=== PATIENT | female | born 1990 | race Native Hawaiian/Other Pacific Islander ===

== ENCOUNTER 2016-12-05 19:57 | Emergency (ER) | payer OTHER ==
--- NOTE | 2016-12-06 | ED NURSING NOTES ---
Clinical Report - Nurses Merged With [facility] [address] [place] [address] 12/05/2016 19:59 Patient: KELLY KAUFMAN TRIAGE Triage time 21:07. Acuity: LEVEL 3. Chief Complaint: HEADACHE, NAUSEA and ABDOMINAL PAIN. 21:21. Alert. SEPSIS SCREEN: Sepsis Screen. Negative (no infection suspected/documented). MARÍA COMA SCORE: [place] Coma Scale: 15- eyes open spontaneously (4); best verbal response- oriented x 4 (5); best motor response- obeys commands (6). --21:21 Claus Thomas R.N. 21:17 12/05/16. BP: 127/72. HR: 98. RR: 17. O2 saturation: 100% on room air. Temp: 98.2 F (oral). Pain level now: 07/28. --21:21 Claus Thomas R.N. Weight: 44.9 kg stated. Height/Length: 61 inches Per Patient. BMI: 18.7. --00:11 Claus Thomas R.N. Medications None. --21:18 Claus Thomas R.N. Medication/allergy information source: the patient. --21:21 Claus Thomas R.N. Allergies Compazine. --21:18 Claus Thomas R.N. History Arrived by private vehicle. Historian: patient. Unaccompanied. Primary physician ([facility]). Onset. (3 days ago). Treatment PRESENTATION DESIGNER: None. PAST MEDICAL HX: Immunizations: up-to-date. Last normal menstrual period now. SOCIAL HX: Never smoker. Occasional alcohol use. History of drug use: marijuana. (daily). No infectious disease exposure. ABUSE ASSESSMENT: No report of abuse. FALL RISK ASSESSMENT: Fall risk assessment completed. No fall risk identified. NUTRITIONAL RISK ASSESSMENT: The nutritional risk assessment revealed no deficiencies. FUNCTIONAL ASSESSMENT: Functional assessment: no impairments noted. LEARNING NEEDS ASSESSMENT: The learning needs assessment revealed no barriers. SKIN INTEGRITY ASSESSMENT: Skin integrity risk assessment completed. No skin integrity risk identified. --21:21 Claus Thomas R.N. PROBLEMS: PTSD. Depression. --21:19 Claus Thomas R.N. ADDITIONAL SURGERIES: Hand surgery. --21:19 Claus Thomas R.N. Interventions ID band on patient. To treatment room. --21:21 Claus Thomas R.N. PHYSICAL ASSESSMENT 21:13. To room via wheelchair. Patient gowned. GENERAL / NEURO / PSYCH: Alert. Oriented X 4. HEENT: No facial asymmetry noted. Mucous membranes are pink. RESPIRATORY: Respirations not labored. GI / : Emesis noted. Has vomited once. SKIN: Skin is warm and dry. Normal skin turgor. --21:13 Claus Thomas R.N. NURSING PROGRESS NOTES 21:08 Patient to restroom to provide urine sample. --21:08 Claus Thomas R.N. 21:09. Patient ID band checked for patient name and birthdate: patient confirmed. Clean catch urine collected with return of yellow-colored clear urine; sample sent to lab for urinalysis, drug screen and HCG. Specimen labeled in the presence of the patient. --21:12 Claus Thomas R.N. 21:12 Patient vomiting - emesis bag provided. --21:12 Claus Thomas R.N. 21:31 12/05/2016 Site #1 started via IV in the right wrist with an 22g angiocath, with aseptic technique and good blood return; one attempt. Saline lock flushed with 10 mL saline (Unable to draw). --21:42 Claus Thomas R.N. 21:48 12/05/2016 Zofran (Ondansetron HCl) IVP 4 mg given over 2 minute(s) via site #1. Allergies verified and confirmed 5 rights. IV patency established. IV site checked: no pain, redness, or swelling. IV flushed thoroughly pre- and post-medication administration (patient reports having 4mg PO just before arrival form [facility]). --21:50 Claus Thomas R.N. 21:49 12/05/2016 Started bag #1 1000 mL IV Fluids IV NS (Saline); at 1000 mL/hr over 1 hour(s) via site #1 via IV pump. Allergies verified and confirmed 5 rights. IV patency established. IV site checked: no pain, redness, or swelling. IV flushed thoroughly pre- and post-medication administration. --21:51 Claus Thomas R.N. 21:52 Lab with pt for blood draw. --21:52 Claus Thomas R.N. <<STRICKEN ENTRY-- 22:54 12/05/2016 Started bag #1 1000 mL IV Fluids IV NS (Saline); at 999 mL/hr over 1 hour(s) via site #1 via IV pump. IV patency established. IV site checked: no pain, redness, or swelling. IV flushed thoroughly pre- and post-medication administration. --22:55 Claus Thomas R.N. --END STRIKE>> Correction. --22:55 Claus Thomas R.N. 22:54 12/05/2016 Started bag #2 1000 IV Fluids IV NS (Saline); at 999 mL/hr over 1 hour(s) via site #1 via IV pump. IV patency established. IV site checked: no pain, redness, or swelling. IV flushed thoroughly pre- and post-medication administration. --22:55 Claus Thomas R.N. 22:55 12/05/2016 IV Fluids IV NS Discontinued: bag #1 infused. Total amount infused: 1000 mL. IV patency established. IV site checked: no pain, redness, or swelling. IV flushed thoroughly. --22:55 Claus Thomas R.N. 23:00 12/05/2016 Toradol IVP 30 mg given over 2 minute(s) via site #1. Allergies verified and confirmed 5 rights. IV patency established. IV site checked: no pain, redness, or swelling. IV flushed thoroughly pre- and post-medication administration. --23:00 Claus Thomas R.N. 23:38. Patient ID band checked for patient name and birthdate: patient confirmed. Throat swab obtained for rapid strep; labeled in the presence of the patient and sent to lab. --23:38 Claus Thomas R.N. 23:36 12/05/2016 Benadryl (DiphenhydrAMINE HCl) IVP 25 mg given over 1 minute(s) via site #1. Allergies verified, confirmed 5 rights and sedative warning given to the patient. IV patency established. IV site checked: no pain, redness, or swelling. IV flushed thoroughly pre- and post-medication administration. --23:39 Claus Thomas R.N. 23:39 12/05/16. BP: 110/62. HR: 88. RR: 16. O2 saturation: 98% on room air. --23:39 Claus Thomas R.N. 23:39. The patient is calm and resting quietly. RESPIRATORY: No respiratory distress. SKIN: Skin is warm and dry. Skin color within normal limits. --23:39 Claus Thomas R.N. 00:00 12/06/2016 IV Fluids IV NS Discontinued: bag #2 infused upon discharge. Total amount infused: 1000 mL. IV patency established. IV site checked: no pain, redness, or swelling. IV flushed thoroughly. --00:00 Claus Thomas R.N. 00:05. The patient is calm and resting quietly. RESPIRATORY: No respiratory distress. SKIN: Skin is warm and dry. Skin color within normal limits. --03:23 Claus Thomas R.N. DISPOSITION / DISCHARGE Departure time: 00:09. Condition at departure: stable. No learning barriers present. Discharge instructions provided and reviewed with the patient. Reviewed medication(s) side effects, precautions, dosing and course information. Prescription(s) given to the patient. Patient verbalized understanding. Written instructions provided in Divehi. The patient was discharged home and accompanied by civil celebrant. She left the Emergency Department ambulatory and via private vehicle. Jewel Supervisor driving. FALL RISK ASSESSMENT: Fall risk assessment completed. No fall risk identified. --00:09 Claus Thomas R.N. 00:01 12/06/16. BP: 99/49. HR: 86. RR: 15. O2 saturation: 98% on room air. Temp: 98.3 F (oral). Pain level now: 11/28. --00:09 Claus Thomas R.N. 00:05 12/06/2016 Site #1 removed upon discharge. Catheter intact. Bandage applied. --00:10 Claus Thomas R.N. Locked/Released at 12/06/2016 3:24 by Claus Thomas R.N.
--- NOTE | 2016-12-06 | ED NURSING NOTES ---
Clinical Report - Nurses [facility] [address] [place] [address] 12/05/2016 19:59 Patient: KELLY KAUFMAN TRIAGE Triage time 21:07. Acuity: LEVEL 3. Chief Complaint: HEADACHE, NAUSEA and ABDOMINAL PAIN. 21:21. Alert. SEPSIS SCREEN: Sepsis Screen. Negative (no infection suspected/documented). MARÍA COMA SCORE: [place] Coma Scale: 15- eyes open spontaneously (4); best verbal response- oriented x 4 (5); best motor response- obeys commands (6). --21:21 Claus Thomas R.N. 21:17 12/05/16. BP: 127/72. HR: 98. RR: 17. O2 saturation: 100% on room air. Temp: 98.2 F (oral). Pain level now: 07/28. --21:21 Claus Thomas R.N. Weight: 44.9 kg stated. Height/Length: 61 inches Per Patient. BMI: 18.7. --00:11 Claus Thomas R.N. Medications None. --21:18 Claus Thomas R.N. Medication/allergy information source: the patient. --21:21 Claus Thomas R.N. Allergies Compazine. --21:18 Claus Thomas R.N. History Arrived by private vehicle. Historian: patient. Unaccompanied. Primary physician ([facility]). Onset. (3 days ago). Treatment SHREDDER/GRANULATOR OPERATOR: None. PAST MEDICAL HX: Immunizations: up-to-date. Last normal menstrual period now. SOCIAL HX: Never smoker. Occasional alcohol use. History of drug use: marijuana. (daily). No infectious disease exposure. ABUSE ASSESSMENT: No report of abuse. FALL RISK ASSESSMENT: Fall risk assessment completed. No fall risk identified. NUTRITIONAL RISK ASSESSMENT: The nutritional risk assessment revealed no deficiencies. FUNCTIONAL ASSESSMENT: Functional assessment: no impairments noted. LEARNING NEEDS ASSESSMENT: The learning needs assessment revealed no barriers. SKIN INTEGRITY ASSESSMENT: Skin integrity risk assessment completed. No skin integrity risk identified. --21:21 Claus Thomas R.N. PROBLEMS: PTSD. Depression. --21:19 Claus Thomas R.N. ADDITIONAL SURGERIES: Hand surgery. --21:19 Claus Thomas R.N. Interventions ID band on patient. To treatment room. --21:21 Claus Thomas R.N. PHYSICAL ASSESSMENT 21:13. To room via wheelchair. Patient gowned. GENERAL / NEURO / PSYCH: Alert. Oriented X 4. HEENT: No facial asymmetry noted. Mucous membranes are pink. RESPIRATORY: Respirations not labored. GI / : Emesis noted. Has vomited once. SKIN: Skin is warm and dry. Normal skin turgor. --21:13 Claus Thomas R.N. NURSING PROGRESS NOTES 21:08 Patient to restroom to provide urine sample. --21:08 Claus Thomas R.N. 21:09. Patient ID band checked for patient name and birthdate: patient confirmed. Clean catch urine collected with return of yellow-colored clear urine; sample sent to lab for urinalysis, drug screen and HCG. Specimen labeled in the presence of the patient. --21:12 Claus Thomas R.N. 21:12 Patient vomiting - emesis bag provided. --21:12 Claus Thomas R.N. 21:31 12/05/2016 Site #1 started via IV in the right wrist with an 22g angiocath, with aseptic technique and good blood return; one attempt. Saline lock flushed with 10 mL saline (Unable to draw). --21:42 Claus Thomas R.N. 21:48 12/05/2016 Zofran (Ondansetron HCl) IVP 4 mg given over 2 minute(s) via site #1. Allergies verified and confirmed 5 rights. IV patency established. IV site checked: no pain, redness, or swelling. IV flushed thoroughly pre- and post-medication administration (patient reports having 4mg PO just before arrival form [facility]). --21:50 Claus Thomas R.N. 21:49 12/05/2016 Started bag #1 1000 mL IV Fluids IV NS (Saline); at 1000 mL/hr over 1 hour(s) via site #1 via IV pump. Allergies verified and confirmed 5 rights. IV patency established. IV site checked: no pain, redness, or swelling. IV flushed thoroughly pre- and post-medication administration. --21:51 Claus Thomas R.N. 21:52 Lab with pt for blood draw. --21:52 Claus Thomas R.N. <<STRICKEN ENTRY-- 22:54 12/05/2016 Started bag #1 1000 mL IV Fluids IV NS (Saline); at 999 mL/hr over 1 hour(s) via site #1 via IV pump. IV patency established. IV site checked: no pain, redness, or swelling. IV flushed thoroughly pre- and post-medication administration. --22:55 Claus Thomas R.N. --END STRIKE>> Correction. --22:55 Claus Thomas R.N. 22:54 12/05/2016 Started bag #2 1000 IV Fluids IV NS (Saline); at 999 mL/hr over 1 hour(s) via site #1 via IV pump. IV patency established. IV site checked: no pain, redness, or swelling. IV flushed thoroughly pre- and post-medication administration. --22:55 Claus Thomas R.N. 22:55 12/05/2016 IV Fluids IV NS Discontinued: bag #1 infused. Total amount infused: 1000 mL. IV patency established. IV site checked: no pain, redness, or swelling. IV flushed thoroughly. --22:55 Claus Thomas R.N. 23:00 12/05/2016 Toradol IVP 30 mg given over 2 minute(s) via site #1. Allergies verified and confirmed 5 rights. IV patency established. IV site checked: no pain, redness, or swelling. IV flushed thoroughly pre- and post-medication administration. --23:00 Claus Thomas R.N. 23:38. Patient ID band checked for patient name and birthdate: patient confirmed. Throat swab obtained for rapid strep; labeled in the presence of the patient and sent to lab. --23:38 Claus Thomas R.N. 23:36 12/05/2016 Benadryl (DiphenhydrAMINE HCl) IVP 25 mg given over 1 minute(s) via site #1. Allergies verified, confirmed 5 rights and sedative warning given to the patient. IV patency established. IV site checked: no pain, redness, or swelling. IV flushed thoroughly pre- and post-medication administration. --23:39 Claus Thomas R.N. 23:39 12/05/16. BP: 110/62. HR: 88. RR: 16. O2 saturation: 98% on room air. --23:39 Claus Thomas R.N. 23:39. The patient is calm and resting quietly. RESPIRATORY: No respiratory distress. SKIN: Skin is warm and dry. Skin color within normal limits. --23:39 Claus Thomas R.N. 00:00 12/06/2016 IV Fluids IV NS Discontinued: bag #2 infused upon discharge. Total amount infused: 1000 mL. IV patency established. IV site checked: no pain, redness, or swelling. IV flushed thoroughly. --00:00 Claus Thomas R.N. 00:05. The patient is calm and resting quietly. RESPIRATORY: No respiratory distress. SKIN: Skin is warm and dry. Skin color within normal limits. --03:23 Claus Thomas R.N. DISPOSITION / DISCHARGE Departure time: 00:09. Condition at departure: stable. No learning barriers present. Discharge instructions provided and reviewed with the patient. Reviewed medication(s) side effects, precautions, dosing and course information. Prescription(s) given to the patient. Patient verbalized understanding. Written instructions provided in Korean. The patient was discharged home and accompanied by tree faller. She left the Emergency Department ambulatory and via private vehicle. Rag Inspector driving. FALL RISK ASSESSMENT: Fall risk assessment completed. No fall risk identified. --00:09 Claus Thomas R.N. 00:01 12/06/16. BP: 99/49. HR: 86. RR: 15. O2 saturation: 98% on room air. Temp: 98.3 F (oral). Pain level now: 11/28. --00:09 Claus Thomas R.N. 00:05 12/06/2016 Site #1 removed upon discharge. Catheter intact. Bandage applied. --00:10 Claus Thomas R.N. Locked/Released at 12/06/2016 3:24 by Claus Thomas R.N.
--- NOTE | 2016-12-06 | ED ORDER SUMMARY ---
..... Patient: KELLY KAUFMAN OrderSheet [facility] VisitID: [id number] [address] [place] [address] 26y, F Registration Date/Time: 12/05/2016 ORDER SHEET Weight: 44.9 kg (stated) Allergies: Compazine GENERAL ORDERS: UA-Culture if indicated Urgent (21:12/05/2016 JQuivey R.N. per protocol) (Ack 21:35 CHagerty ER Produce Assistant) (21:40 JQuivey R.N.) Urine Urgent (21:12/05/2016 JQuivey R.N. per protocol) (Ack 21:35 CHagerty ER Produce Assistant) (21:40 JQuivey R.N.) CBC w Diff Urgent (:12/05/2016 JCoates) (Ack 21:35 CHagerty ER Produce Assistant) (22:52 JQuivey R.N.) CMP Urgent (21:12/05/2016 JCoates) (Ack 21:35 CHagerty ER Produce Assistant) (22:52 JQuivey R.N.) Urine Drug Screen Urgent (:12/05/2016 JCoates) (Ack 21:35 CHagerty ER Produce Assistant) (21:40 JQuivey R.N.) Culture, Strep Screen Urgent (23:12/05/2016 JCoates) (Ack 23:30 CHatlaceyekimana) (23:38 JQuivey R.N.) MEDICATION ORDERS: IV FLUIDS: IV NS : initial bolus 1000 mL (1000 mL/hr), then 1000 mL/hr for X1 (NOW) (21:12/05/2016 JCoates) (Ack 21:40 JQuivey R.N.) (21:51 JQuivey R.N.) Zofran IV 8 mg (NOW) (21:12/05/2016 JCoates) (Ack 21:40 JQuivey R.N.) (Cancelled: Other21:47 JQuivey R.N.) IV Saline Lock (:12/05/2016 JCoates) (Ack 21:40 JQuivey R.N.) (21:42 JQuivey R.N.) Zofran IV 4 mg (NOW) (21:48 12/05/2016 JQuivey R.N. per protocol) (21:50 JQuivey R.N.) IV NS : initial bolus 1000 mL (1000 mL/hr), then 1000 mL/hr for X1 (NOW) (22:49 12/05/2016 JCoates) (Ack 22:52 JQuivey R.N.) (22:55 JQuivey R.N.) Toradol IV 30 mg (NOW) (22:56 12/05/2016 JCoates) (23:00 JQuivey R.N.) Benadryl IV 25 mg (NOW) (23:27 12/05/2016 JCoates) (Ack 23:34 JQuivey R.N.) (23:38 JQuivey R.N.) ORDER SHEET NOTES: [Electronically signed by Jerson Carmen (00:46 12/06/2016)] [Electronically signed by Claus Thomas R.N. (03:24 12/06/2016)] [Electronically locked/signed by Claus Thomas R.N. (03:24 12/06/2016)]
--- NOTE | 2016-12-06 | ED ORDER SUMMARY ---
..... Patient: KELLY KAUFMAN OrderSheet [facility] VisitID: [id number] [address] [place] [address] 26y, F Registration Date/Time: 12/05/2016 ORDER SHEET Weight: 44.9 kg (stated) Allergies: Compazine GENERAL ORDERS: UA-Culture if indicated Urgent (21:12/05/2016 JQuivey R.N. per protocol) (Ack 21:35 CHagerty ER Dust Box Tender) (21:40 JQuivey R.N.) Urine Urgent (21:12/05/2016 JQuivey R.N. per protocol) (Ack 21:35 CHagerty ER Dust Box Tender) (21:40 JQuivey R.N.) CBC w Diff Urgent (:12/05/2016 JCoates) (Ack 21:35 CHagerty ER Dust Box Tender) (22:52 JQuivey R.N.) CMP Urgent (21:12/05/2016 JCoates) (Ack 21:35 CHagerty ER Dust Box Tender) (22:52 JQuivey R.N.) Urine Drug Screen Urgent (:12/05/2016 JCoates) (Ack 21:35 CHagerty ER Dust Box Tender) (21:40 JQuivey R.N.) Culture, Strep Screen Urgent (23:12/05/2016 JCoates) (Ack 23:30 CHatlaceyekimana) (23:38 JQuivey R.N.) MEDICATION ORDERS: IV FLUIDS: IV NS : initial bolus 1000 mL (1000 mL/hr), then 1000 mL/hr for X1 (NOW) (21:12/05/2016 JCoates) (Ack 21:40 JQuivey R.N.) (21:51 JQuivey R.N.) Zofran IV 8 mg (NOW) (21:12/05/2016 JCoates) (Ack 21:40 JQuivey R.N.) (Cancelled: Other21:47 JQuivey R.N.) IV Saline Lock (:12/05/2016 JCoates) (Ack 21:40 JQuivey R.N.) (21:42 JQuivey R.N.) Zofran IV 4 mg (NOW) (21:48 12/05/2016 JQuivey R.N. per protocol) (21:50 JQuivey R.N.) IV NS : initial bolus 1000 mL (1000 mL/hr), then 1000 mL/hr for X1 (NOW) (22:49 12/05/2016 JCoates) (Ack 22:52 JQuivey R.N.) (22:55 JQuivey R.N.) Toradol IV 30 mg (NOW) (22:56 12/05/2016 JCoates) (23:00 JQuivey R.N.) Benadryl IV 25 mg (NOW) (23:27 12/05/2016 JCoates) (Ack 23:34 JQuivey R.N.) (23:38 JQuivey R.N.) ORDER SHEET NOTES: [Electronically signed by Jerson Carmen (00:46 12/06/2016)] [Electronically signed by Claus Thomas R.N. (03:24 12/06/2016)] [Electronically locked/signed by Claus Thomas R.N. (03:24 12/06/2016)]
--- NOTE | 2016-12-06 | ED CLINICAL REPORT ---
Clinical Report - Physicians/Mid Levels [facility] [address] [place] [address] 12/05/2016 19:59 Patient: KELLY KAUFMAN Time Seen: 21:14 Dec 05 2016. Arrived- By private vehicle. Historian- patient. HISTORY OF PRESENT ILLNESS Chief Complaint: VOMITING. This started 3 days ago and is still present. It was abrupt in onset. The patient has had nausea, vomiting and abdominal pain. No diarrhea, black stools, bloody stools or constipation. Has not recently been on antibiotics. The illness is described as moderate. Similar symptoms previously: None. Recent medical care: Not recently seen/assessed. REVIEW OF SYSTEMS No fever, difficulty with urination, cough or skin rash. Denies current . All systems otherwise negative, except as recorded above. PAST HISTORY See nurses notes. No history of heart disease or lung disease. SOCIAL HISTORY Never smoker. Alcohol use. History of drug use. PHYSICAL EXAM Appearance: The patient is mildly dehydrated, appears frail, unkempt and older than stated age and appears malnourished. Eyes: Pupils equal, round and reactive to light. Eyes normal inspection. ENT: Abnormal ear exam: Cauliflower ear to left ear. Left Ear: there is mild pain on movement of the auricle. No wax occlusion of or inflammation of the left external canal. Nose normal. Pharynx normal. Neck: Normal inspection. Neck supple. No meningeal signs, JVD or lymphadenopathy. CVS: Tachycardia. Heart sounds normal. Rhythm normal. Respiratory: No respiratory distress. Breath sounds normal. Abdomen: Soft. Mild tenderness in the left lower quadrant. No guarding or rebound tenderness. No organomegaly. No mass. Back: Normal inspection. No CVA tenderness. Skin: Poor skin turgor. Skin dry. Extremities: Extremities exhibit normal ROM. Neuro: Oriented X 3. LABS, X-RAYS, AND EKG Laboratory Tests: UA-Culture if indicated: (POWER: 12/05/2016 21:15) ( MsgRcvd 12/05/2016 21:55) Final results Test Result Flag Units (Reference) URINE COLOR YELLOW URINE APPEARANCE CLEAR URINE GLUCOSE TRACE (NEGATIVE) URINE BILIRUBIN NEGATIVE (NEGATIVE) URINE KETONE 2+ (NEGATIVE) URINE SPECIFIC GRAVITY >= 1.030 (1.010-1.030) URINE PH 6.0 (5.0-8.0) URINE PROTEIN 1+ (NEGATIVE) URINE UROBILINOGEN 2.0 EU/dL (0.2-1.0) The urobilinogen reagent area may react with interferingsubstances known to react with Mingo's reagent such asp-aminosalicylic acid and sulfonamides. Atypical colorreactions may be obtained in the presence of highconcentrations of p-aminobenzoic acid. The absence ofurobilinogen cannot be determined with this test. URINE NITRITE NEGATIVE (NEGATIVE) URINE BLOOD 3+ (NEGATIVE) URINE LEUK ESTERASE NEGATIVE (NEGATIVE) URINE RBC 5-10 rbc/hpf (0-1) URINE WBC 1-3 wbc/hpf (0-1) URINE EPITHELIAL CELLS 3-5 EPI/hpf (0-5) URINE BACTERIA TRACE (<1+) (NONE SEEN) URINE COMMENT CULT NOT INDICATED MUCUS 3+URINE CULTURES ARE SET-UP BASED ON THE FOLLOWING CRITERIA:POSITIVE NITRITEPOSITIVE LEUKOCYTE ESTERASEGREATER THAN 10 WHITE BLOOD CELLSMODERATE (2+) OR GREATER BACTERIA Urine: (POWER: 12/05/2016 21:15) ( [facility] 12/05/2016 21:51) Final results Test Result Flag Units (Reference) URINE NEGATIVE CBC w Diff: (POWER: 12/05/2016 21:29) ( [facility] 12/05/2016 22:23) Final results Test Result Flag Units (Reference) WHITE BLOOD COUNT 13.0 H K/uL (4.5-11.5) RED BLOOD COUNT 5.06 M/uL (4.00-5.20) HEMOGLOBIN 14.6 gm/dL (12.0-16.0) HEMATOCRIT 43.1 % (36.0-46.0) MEAN CELL VOLUME 85 fL (80-100) MEAN CORPUSCULAR HGB 29 pg (26-34) MEAN CORPUSCULAR HGB CONC 34 g/dL (31-37) RED CELL DISTRIBUTION WIDTH 13.1 % (11.6-14.8) PLATELET COUNT 163 K/uL (150-400) NEUTROPHIL % 86.0 H % (50-75) LYMPH % 9.5 L % (25-40) MONO % 4.1 % (3-14) EOSINOPHIL % 0.3 % (0-4) BASOPHIL % 0.1 % (0-2) Urine Drug Screen: (POWER: 12/05/2016 21:15) ( [facility] 12/05/2016 23:46) Final results Test Result Flag Units (Reference) AMPHETAMINE/METHAMPHETAMINE POSITIVE H (NEGATIVE) BARBITURATE NEGATIVE (NEGATIVE) BENZODIAZEPINE NEGATIVE (NEGATIVE) CANNABINOID NEGATIVE (NEGATIVE) COCAINE NEGATIVE (NEGATIVE) ECSTASY NEGATIVE (NEGATIVE) METHADONE NEGATIVE (NEGATIVE) OPIATE NEGATIVE (NEGATIVE) The urine drug screen is a qualitative screening test fordrug overdose and abuse. All screen results should beconsidered as presumptive.Drugs screened for are as follows:BenzodiazepinesCocaineAmphetamines/MetamphetaminesTHC (Tetrahydrocannabinol)OpiatesBarbituratesEcstasyMethadonePositive results are unconfirmed. For confirmation, notifythe lab for the specimen to be sent to the reference lab.All confirmations must be performed by a differentmethodology.The ingestion of natural herbal and plant productscontaining Ephedra/Ephedra metabolites can produce in urineone or more substances capable of cross reacting withamphetamine/methamphetamine immunoassays. These testsprovide a preliminary result only. A more specificalternative chemical method must be used to obtain aconfirmed analytical result. CMP: (POWER: 12/05/2016 21:29) ( [facility] [place] 12/05/2016 22:28) Final results Test Result Flag Units (Reference) GLUCOSE 87 mg/dL (70-110) BUN 23 H mg/dL (7-18) CREATININE 0.9 mg/dL (0.6-1.3) Estimated GFR >60 mL/min Estimated GFR- >60 mL/min Note: Persistent reduction over 3 months in eGFR<60 mL/min/1.73 m2 defines CKD. Patients with eGFR values>=60 mL/min/1.73 m2 may also have CKD if evidence ofpersistent proteinuria. Additional information may be foundat www.kidney.org. SODIUM 138 mmol/L (136-145) POTASSIUM 3.3 L mmol/L (3.5-5.1) CHLORIDE 100 mmol/L (98-107) CARBON DIOXIDE 27 mmol/L (21-32) CALCIUM 8.6 mg/dL (8.5-10.1) TOTAL PROTEIN 7.1 g/dL (6.4-8.2) ALBUMIN 3.3 g/dL (3.3-5.0) BILIRUBIN, TOTAL 0.7 mg/dL (0.0-1.0) ALKALINE PHOSPHATASE 125 H U/L (46-116) AST (SGOT) 33 U/L (15-37) ALT (SGPT) 27 U/L (12-78) Culture, Strep Screen: (POWER: 12/05/2016 23:40) ( MsgRcvd 12/05/2016 23:56) Final results Test Result Flag Units (Reference) RAPID STREP SCREEN - THROAT DATE: 12/05/16 NEGATIVE SCREEN: RAPID STREP SCREEN NEGATIVE; CONFIRMATION TO FOLLOW . PROGRESS AND PROCEDURES Course of Care: 21:32 12/05/16. Patient stable. She is quite unkempt with dirt under the fingernails and multiple abrasions, scratches and appears she hasn't bathed for several days. Her history isn't consistent and I can't really trust her history completely. We will get lab work and hydrated. 00:01 12/06/16. Patient comfortable in the room. Her WBC was slightly elevated but this could be a stress reaction. as I cannot identify a obvious source of infection I discussed the patient with my supervising physician who also evaluated her. He recommended a strep screen which was normal, but otherwise he also cannot identify any life threatening cause of her symptoms. Her lab was not significant abnormal for several days of vomiting. We'll discharge home with strict instructions for return here if not improving in the next 48 hours. Disposition: Discharged in good and improved condition. CLINICAL IMPRESSION Acute gastroenteritis with volume depletion, dehydration and hypokalemia. Acute headache. INSTRUCTIONS Rest at home today and tomorrow. Drink plenty of fluids. No dietary restrictions. Warnings: SEDATIVE MEDICATION: You were given sedative medication during your visit. Do not drive or operate dangerous machinery for 12 hours. GENERAL WARNINGS: Return or contact your physician immediately if your condition worsens or changes unexpectedly, if not improving as expected, or if other problems arise. SPECIFICALLY, return if you develop pain in the abdomen, fever or fainting; or for continued vomiting or inability to keep fluids down. Prescription Medications: Zofran ODT 8 mg: take 1 orally every 8 hours for 3 days as needed for nausea and vomiting. Dispense five (5). No refill. Substitution is permissible. OTC Medications: Take acetaminophen (Tylenol, Datril, etc.) according to label instructions. Available over the counter. Follow-up: Return to the emergency department in two days if not better. Follow up with your doctor in four days even if well. Understanding of the discharge instructions verbalized by patient. (Electronically signed by Jerson Carmen, 12/06/2016 0:46)
--- NOTE | 2016-12-06 | ED CLINICAL REPORT ---
Clinical Report - Physicians/Mid Levels [facility] [address] [place] [address] 12/05/2016 19:59 Patient: KELLY KAUFMAN Time Seen: 21:14 Dec 05 2016. Arrived- By private vehicle. Historian- patient. HISTORY OF PRESENT ILLNESS Chief Complaint: VOMITING. This started 3 days ago and is still present. It was abrupt in onset. The patient has had nausea, vomiting and abdominal pain. No diarrhea, black stools, bloody stools or constipation. Has not recently been on antibiotics. The illness is described as moderate. Similar symptoms previously: None. Recent medical care: Not recently seen/assessed. REVIEW OF SYSTEMS No fever, difficulty with urination, cough or skin rash. Denies current . All systems otherwise negative, except as recorded above. PAST HISTORY See nurses notes. No history of heart disease or lung disease. SOCIAL HISTORY Never smoker. Alcohol use. History of drug use. PHYSICAL EXAM Appearance: The patient is mildly dehydrated, appears frail, unkempt and older than stated age and appears malnourished. Eyes: Pupils equal, round and reactive to light. Eyes normal inspection. ENT: Abnormal ear exam: Cauliflower ear to left ear. Left Ear: there is mild pain on movement of the auricle. No wax occlusion of or inflammation of the left external canal. Nose normal. Pharynx normal. Neck: Normal inspection. Neck supple. No meningeal signs, JVD or lymphadenopathy. CVS: Tachycardia. Heart sounds normal. Rhythm normal. Respiratory: No respiratory distress. Breath sounds normal. Abdomen: Soft. Mild tenderness in the left lower quadrant. No guarding or rebound tenderness. No organomegaly. No mass. Back: Normal inspection. No CVA tenderness. Skin: Poor skin turgor. Skin dry. Extremities: Extremities exhibit normal ROM. Neuro: Oriented X 3. LABS, X-RAYS, AND EKG Laboratory Tests: UA-Culture if indicated: (POWER: 12/05/2016 21:15) ( MsgRcvd 12/05/2016 21:55) Final results Test Result Flag Units (Reference) URINE COLOR YELLOW URINE APPEARANCE CLEAR URINE GLUCOSE TRACE (NEGATIVE) URINE BILIRUBIN NEGATIVE (NEGATIVE) URINE KETONE 2+ (NEGATIVE) URINE SPECIFIC GRAVITY >= 1.030 (1.010-1.030) URINE PH 6.0 (5.0-8.0) URINE PROTEIN 1+ (NEGATIVE) URINE UROBILINOGEN 2.0 EU/dL (0.2-1.0) The urobilinogen reagent area may react with interferingsubstances known to react with Mingo's reagent such asp-aminosalicylic acid and sulfonamides. Atypical colorreactions may be obtained in the presence of highconcentrations of p-aminobenzoic acid. The absence ofurobilinogen cannot be determined with this test. URINE NITRITE NEGATIVE (NEGATIVE) URINE BLOOD 3+ (NEGATIVE) URINE LEUK ESTERASE NEGATIVE (NEGATIVE) URINE RBC 5-10 rbc/hpf (0-1) URINE WBC 1-3 wbc/hpf (0-1) URINE EPITHELIAL CELLS 3-5 EPI/hpf (0-5) URINE BACTERIA TRACE (<1+) (NONE SEEN) URINE COMMENT CULT NOT INDICATED MUCUS 3+URINE CULTURES ARE SET-UP BASED ON THE FOLLOWING CRITERIA:POSITIVE NITRITEPOSITIVE LEUKOCYTE ESTERASEGREATER THAN 10 WHITE BLOOD CELLSMODERATE (2+) OR GREATER BACTERIA Urine: (POWER: 12/05/2016 21:15) ( [facility] 12/05/2016 21:51) Final results Test Result Flag Units (Reference) URINE NEGATIVE CBC w Diff: (POWER: 12/05/2016 21:29) ( [facility] 12/05/2016 22:23) Final results Test Result Flag Units (Reference) WHITE BLOOD COUNT 13.0 H K/uL (4.5-11.5) RED BLOOD COUNT 5.06 M/uL (4.00-5.20) HEMOGLOBIN 14.6 gm/dL (12.0-16.0) HEMATOCRIT 43.1 % (36.0-46.0) MEAN CELL VOLUME 85 fL (80-100) MEAN CORPUSCULAR HGB 29 pg (26-34) MEAN CORPUSCULAR HGB CONC 34 g/dL (31-37) RED CELL DISTRIBUTION WIDTH 13.1 % (11.6-14.8) PLATELET COUNT 163 K/uL (150-400) NEUTROPHIL % 86.0 H % (50-75) LYMPH % 9.5 L % (25-40) MONO % 4.1 % (3-14) EOSINOPHIL % 0.3 % (0-4) BASOPHIL % 0.1 % (0-2) Urine Drug Screen: (POWER: 12/05/2016 21:15) ( [facility] 12/05/2016 23:46) Final results Test Result Flag Units (Reference) AMPHETAMINE/METHAMPHETAMINE POSITIVE H (NEGATIVE) BARBITURATE NEGATIVE (NEGATIVE) BENZODIAZEPINE NEGATIVE (NEGATIVE) CANNABINOID NEGATIVE (NEGATIVE) COCAINE NEGATIVE (NEGATIVE) ECSTASY NEGATIVE (NEGATIVE) METHADONE NEGATIVE (NEGATIVE) OPIATE NEGATIVE (NEGATIVE) The urine drug screen is a qualitative screening test fordrug overdose and abuse. All screen results should beconsidered as presumptive.Drugs screened for are as follows:BenzodiazepinesCocaineAmphetamines/MetamphetaminesTHC (Tetrahydrocannabinol)OpiatesBarbituratesEcstasyMethadonePositive results are unconfirmed. For confirmation, notifythe lab for the specimen to be sent to the reference lab.All confirmations must be performed by a differentmethodology.The ingestion of natural herbal and plant productscontaining Ephedra/Ephedra metabolites can produce in urineone or more substances capable of cross reacting withamphetamine/methamphetamine immunoassays. These testsprovide a preliminary result only. A more specificalternative chemical method must be used to obtain aconfirmed analytical result. CMP: (POWER: 12/05/2016 21:29) ( [facility] 12/05/2016 22:28) Final results Test Result Flag Units (Reference) GLUCOSE 87 mg/dL (70-110) BUN 23 H mg/dL (7-18) CREATININE 0.9 mg/dL (0.6-1.3) Estimated GFR >60 mL/min Estimated GFR- >60 mL/min Note: Persistent reduction over 3 months in eGFR<60 mL/min/1.73 m2 defines CKD. Patients with eGFR values>=60 mL/min/1.73 m2 may also have CKD if evidence ofpersistent proteinuria. Additional information may be foundat www.kidney.org. SODIUM 138 mmol/L (136-145) POTASSIUM 3.3 L mmol/L (3.5-5.1) CHLORIDE 100 mmol/L (98-107) CARBON DIOXIDE 27 mmol/L (21-32) CALCIUM 8.6 mg/dL (8.5-10.1) TOTAL PROTEIN 7.1 g/dL (6.4-8.2) ALBUMIN 3.3 g/dL (3.3-5.0) BILIRUBIN, TOTAL 0.7 mg/dL (0.0-1.0) ALKALINE PHOSPHATASE 125 H U/L (46-116) AST (SGOT) 33 U/L (15-37) ALT (SGPT) 27 U/L (12-78) Culture, Strep Screen: (POWER: 12/05/2016 23:40) ( MsgRcvd 12/05/2016 23:56) Final results Test Result Flag Units (Reference) RAPID STREP SCREEN - THROAT DATE: 12/05/16 NEGATIVE SCREEN: RAPID STREP SCREEN NEGATIVE; CONFIRMATION TO FOLLOW . PROGRESS AND PROCEDURES Course of Care: 21:32 12/05/16. Patient stable. She is quite unkempt with dirt under the fingernails and multiple abrasions, scratches and appears she hasn't bathed for several days. Her history isn't consistent and I can't really trust her history completely. We will get lab work and hydrated. 00:01 12/06/16. Patient comfortable in the room. Her WBC was slightly elevated but this could be a stress reaction. as I cannot identify a obvious source of infection I discussed the patient with my supervising physician who also evaluated her. He recommended a strep screen which was normal, but otherwise he also cannot identify any life threatening cause of her symptoms. Her lab was not significant abnormal for several days of vomiting. We'll discharge home with strict instructions for return here if not improving in the next 48 hours. Disposition: Discharged in good and improved condition. CLINICAL IMPRESSION Acute gastroenteritis with volume depletion, dehydration and hypokalemia. Acute headache. INSTRUCTIONS Rest at home today and tomorrow. Drink plenty of fluids. No dietary restrictions. Warnings: SEDATIVE MEDICATION: You were given sedative medication during your visit. Do not drive or operate dangerous machinery for 12 hours. GENERAL WARNINGS: Return or contact your physician immediately if your condition worsens or changes unexpectedly, if not improving as expected, or if other problems arise. SPECIFICALLY, return if you develop pain in the abdomen, fever or fainting; or for continued vomiting or inability to keep fluids down. Prescription Medications: Zofran ODT 8 mg: take 1 orally every 8 hours for 3 days as needed for nausea and vomiting. Dispense five (5). No refill. Substitution is permissible. OTC Medications: Take acetaminophen (Tylenol, Datril, etc.) according to label instructions. Available over the counter. Follow-up: Return to the emergency department in two days if not better. Follow up with your doctor in four days even if well. Understanding of the discharge instructions verbalized by patient. (Electronically signed by Jerson Carmen, 12/06/2016 0:46)
--- NOTE | 2016-12-06 03:24 | ED MAR SUMMARY ---
..... Medication Administration Record [facility] [address] [place] [address] Patient: KELLY KAUFMAN Visit ID: [id number] 26y, F Weight: 44.9 kg Height/Length: 61 in BMI: 18.7 ALLERGIES: Compazine Given 21:48 12/05/2016 Claus Thomas R.N. Medication Administered: ZOFRAN [IVP] (ONDANSETRON HCL), Dose: 4 mg IVP over 2 minute(s), Site: #1 right wrist. Medication Ordered: Zofran IV 4 mg (NOW). Start 21:49 12/05/2016 Claus Thomas R.N., Stop 22:55 12/05/2016 Claus Thomas R.N. Medication Administered: IV NS (SALINE), Dose: IV Fluids over 1 hour(s), Rate: 1000 mL/hr, Dispensed: 1000 mL bag, Site: #1 right wrist. Medication Ordered: IV NS : initial bolus 1000 mL (1000 mL/hr), then 1000 mL/hr for X1 (NOW). Start 22:54 12/05/2016 Claus Thomas R.N., Stop 00:00 12/06/2016 Claus Thomas R.N. Medication Administered: IV NS (SALINE), Dose: IV Fluids over 1 hour(s), Rate: 999 mL/hr, Dispensed: 1000 mL bag, Site: #1 right wrist. Medication Ordered: IV NS : initial bolus 1000 mL (1000 mL/hr), then 1000 mL/hr for X1 (NOW). Given 23:00 12/05/2016 Claus Thomas R.N. Medication Administered: TORADOL [IVP], Dose: 30 mg IVP over 2 minute(s), Site: #1 right wrist. Medication Ordered: Toradol IV 30 mg (NOW). Given 23:36 12/05/2016 Claus Thomas R.N. Medication Administered: BENADRYL [IVP] (DIPHENHYDRAMINE HCL), Dose: 25 mg IVP over 1 minute(s), Site: #1 right wrist. Medication Ordered: Benadryl IV 25 mg (NOW).
--- NOTE | 2016-12-06 03:24 | ED MED RECONCILIATION SUMMARY ---
Patient: KELLY KAUFMAN Medication Reconciliation Report [facility] VisitID: [id number] [address] [place] [address] 26y, F Registration Date/Time: 12/05/2016 Weight: 44.9 kg Height/Length: 61 in. BMI: 18.7 ALLERGIES: Compazine The patient's Home Medications are listed below: NONE. The source(s) of the original Home Medication information: patient The following Medications were given to the patient in the Emergency Department: Zofran [IVP] IVP 4 mg, administered: 12/05/2016 9:48:00 PM IV NS IV Fluids bolus 0, then 1000 mL/hr, administered: 12/05/2016 9:49:00 PM IV NS IV Fluids bolus 0, then 999 mL/hr, administered: 12/05/2016 10:54:00 PM Toradol [IVP] IVP 30 mg, administered: 12/05/2016 11:00:00 PM Benadryl [IVP] IVP 25 mg, administered: 12/05/2016 11:36:00 PM The following Medications were prescribed to the patient: Take acetaminophen (Tylenol, Datril, etc.) according to label instructions. Available over the counter. -- Jerson Carmen Zofran ODT 8 mg: take 1 orally every 8 hours for 3 days as needed for nausea and vomiting. Dispense five (5). No refill. Substitution is permissible. -- Jerson Carmen
--- NOTE | 2016-12-06 03:24 | ED MAR SUMMARY ---
..... Medication Administration Record [facility] [address] [place] [address] Patient: KELLY KAUFMAN Visit ID: [id number] 26y, F Weight: 44.9 kg Height/Length: 61 in BMI: 18.7 ALLERGIES: Compazine Given 21:48 12/05/2016 Claus Thomas R.N. Medication Administered: ZOFRAN [IVP] (ONDANSETRON HCL), Dose: 4 mg IVP over 2 minute(s), Site: #1 right wrist. Medication Ordered: Zofran IV 4 mg (NOW). Start 21:49 12/05/2016 Claus Thomas R.N., Stop 22:55 12/05/2016 Claus Thomas R.N. Medication Administered: IV NS (SALINE), Dose: IV Fluids over 1 hour(s), Rate: 1000 mL/hr, Dispensed: 1000 mL bag, Site: #1 right wrist. Medication Ordered: IV NS : initial bolus 1000 mL (1000 mL/hr), then 1000 mL/hr for X1 (NOW). Start 22:54 12/05/2016 Claus Thomas R.N., Stop 00:00 12/06/2016 Claus Thomas R.N. Medication Administered: IV NS (SALINE), Dose: IV Fluids over 1 hour(s), Rate: 999 mL/hr, Dispensed: 1000 mL bag, Site: #1 right wrist. Medication Ordered: IV NS : initial bolus 1000 mL (1000 mL/hr), then 1000 mL/hr for X1 (NOW). Given 23:00 12/05/2016 Claus Thomas R.N. Medication Administered: TORADOL [IVP], Dose: 30 mg IVP over 2 minute(s), Site: #1 right wrist. Medication Ordered: Toradol IV 30 mg (NOW). Given 23:36 12/05/2016 Claus Thomas R.N. Medication Administered: BENADRYL [IVP] (DIPHENHYDRAMINE HCL), Dose: 25 mg IVP over 1 minute(s), Site: #1 right wrist. Medication Ordered: Benadryl IV 25 mg (NOW).
--- NOTE | 2016-12-06 03:24 | ED DISCHARGE INSTRUCTIONS ---
Patient: KELLY KAUFMAN General Instructions [facility] VisitID: [id number] [place] [address] 26y, F Registration Date/Time: 12/05/2016 Acute gastroenteritis with volume depletion, dehydration and hypokalemia. Acute headache. INSTRUCTIONS Rest at home today and tomorrow. Drink plenty of fluids. No dietary restrictions. Warnings: SEDATIVE MEDICATION: You were given sedative medication during your visit. Do not drive or operate dangerous machinery for 12 hours. GENERAL WARNINGS: Return or contact your physician immediately if your condition worsens or changes unexpectedly, if not improving as expected, or if other problems arise. SPECIFICALLY, return if you develop pain in the abdomen, fever or fainting; or for continued vomiting or inability to keep fluids down. Prescription Medications: Zofran ODT 8 mg: take 1 orally every 8 hours for 3 days as needed for nausea and vomiting. Dispense five (5). No refill. Substitution is permissible. OTC Medications: Take acetaminophen (Tylenol, Datril, etc.) according to label instructions. Available over the counter. Follow-up: Return to the emergency department in two days if not better. Follow up with your doctor in four days even if well. Understanding of the discharge instructions verbalized by patient. ADDITIONAL INFORMATION Viral Gastroenteritis (6Yr-Adult) Gastroenteritis is another name for thestomach flu.It is most often caused by a virus that affects the stomach and intestinal tract. Symptoms include stomach cramping and fever, vomiting and/or diarrhea, and can last from 2 to 7 days. The danger from repeated vomiting or diarrhea is dehydration. This is the loss of too much water and minerals from the body. When this occurs, body fluids must be replaced. Antibiotics are not effective for this illness, but simple home treatment will be helpful. Home Care If symptoms are severe, rest at home for the next 24 hours. Avoid tobacco, caffeine, and alcohol use, which can worsen symptoms. Acetaminophen (Tylenol) or ibuprofen (Motrin, Advil) may be usedfor fever or pain unless another medication was prescribed. NOTE: If you have chronic liver or kidney disease or ever had a stomach ulcer or GI bleeding, talk with your doctor before using these medicines. Aspirin should never be used in anyone under 18 years of age who is ill with a fever. It may cause severe liver damage. If medicines for diarrhea or vomiting were prescribed, be sure they are takenonly as directed. If vomiting, drink small amounts of clear fluids (such as water, sports drinks, clear sodas) at frequent intervals to prevent dehydration. Start with 1 to 2 tablespoons every 10 minutes. Once vomiting stops, follow these guidelines: During The First 12 To 24 Hours follow the diet below: Beverages: Sport drinks like Gatorade, soft drinks without caffeine; dequan bhaskar, mineral water (plain or flavored), decaffeinated tea and coffee. Soups: Clear broth, consomm and bouillon Desserts: Plain gelatin (Jell-O), Popsicles and fruit juice bars. During The Next 24 Hours you may add the following to the above: Hot cereal, plain toast, bread, rolls, crackers Plain noodles, rice, mashed potatoes, chicken noodle or rice soup Unsweetened canned fruit (avoid pineapple), bananas Limit fat intake to less than 15 grams per day by avoiding margarine, butter, oils, mayonnaise, sauces, gravies, fried foods, peanut butter, meat, poultry, and fish. Limit fiber; avoid raw or cooked vegetables, fresh fruits (except bananas), and bran cereals. Limit caffeine and chocolate. Do not use spices or seasonings except salt. During The Next 24 Hours The patient can gradually resume a normal diet as symptoms lessen. Preventing Spread Hand washing with soap and water is the best way to prevent the spread of viruses. Caregivers should wash their hands before andafter touching the sick person. The sick person, as well as everyone in the family,should wash their hands after using the toilet and before meals. Clean the toilet after each use. People with diarrhea should not prepare food for others. If you are preparing your own foods, wash your hands before and after. Follow Up with your doctor as advised. Call your doctor if you are not improving over the next 2 to 3 days. If a stool (diarrhea) sample was taken, you may call in 2 days (or as directed) for the results. Get Prompt Medical Attention if any of the following occur: Increasing abdominal pain Continued vomiting (unable to keep liquids down) Frequent diarrhea (more than 5 times a day) Blood in vomit or stool (black or red color) Dark urine, reduced urine output, or extreme thirst Weakness, dizziness, fainting Drowsiness, confusion, stiff neck, or seizure Fever of 100.4F (38C) oral or higher, not better with fever medication New rash Ondansetron Oral disintegrating tablet What is this medicine? ONDANSETRON (on CONCHIS se russell) is used to treat nausea and vomiting caused by chemotherapy. It is also used to prevent or treat nausea and vomiting after surgery. How should I use this medicine? These tablets are made to dissolve in the mouth. Do not try to push the tablet through the foil backing. With dry hands, peel away the foil backing and gently remove the tablet. Place the tablet in the mouth and allow it to dissolve, then swallow. While you may take these tablets with water, it is not necessary to do so. Talk to your detective automobile section regarding the use of this medicine in children. Special care may be needed. What side effects may I notice from receiving this medicine? Side effects that you should report to your doctor or health residential care facility manager as soon as possible: allergic reactions like skin rash, itching or hives, swelling of the face, lips, or tongue breathing problems dizziness fast or irregular heartbeat feeling faint or lightheaded, falls fever and chills swelling of the hands and feet tightness in the chest Side effects that usually do not require medical attention (report to your doctor or health residential care facility manager if they continue or are bothersome): constipation or diarrhea headache What may interact with this medicine? Do not take this medicine with any of the following medications: -apomorphine -cisapride -dofetilide -dronedarone -pimozide -thioridazine -ziprasidone This medicine may also interact with the following medications: -carbamazepine -phenytoin -rifampicin -tramadol -other medicines that prolong the QT interval (cause an abnormal heart rhythm) What if I miss a dose? If you miss a dose, take it as soon as you can. If it is almost time for your next dose, take only that dose. Do not take double or extra doses. Where should I keep my medicine? Keep out of the reach of children. Store between 2 and 30 degrees C (36 and 86 degrees F). Throw away any unused medicine after the expiration date. What should I tell my health care provider before I take this medicine? They need to know if you have any of these conditions: heart disease history of irregular heartbeat liver disease low levels of magnesium or potassium in the blood an unusual or allergic reaction to ondansetron, granisetron, other medicines, foods, dyes, or preservatives or trying to get breast-feeding What should I watch for while using this medicine? Check with your doctor or health residential care facility manager as soon as you can if you have any sign of an allergic reaction. You have been given the following additional information: Gastroenteritis, Viral (6Y-Adult) Ondansetron Oral disintegrating tablet Rest at home today and tomorrow. (Electronically signed by Jerson Carmen, 12/06/2016 0:46)
--- NOTE | 2016-12-06 03:24 | ED MED RECONCILIATION SUMMARY ---
Patient: KELLY KAUFMAN Medication Reconciliation Report [facility] VisitID: [id number] [address] [place] [address] 26y, F Registration Date/Time: 12/05/2016 Weight: 44.9 kg Height/Length: 61 in. BMI: 18.7 ALLERGIES: Compazine The patient's Home Medications are listed below: NONE. The source(s) of the original Home Medication information: patient The following Medications were given to the patient in the Emergency Department: Zofran [IVP] IVP 4 mg, administered: 12/05/2016 9:48:00 PM IV NS IV Fluids bolus 0, then 1000 mL/hr, administered: 12/05/2016 9:49:00 PM IV NS IV Fluids bolus 0, then 999 mL/hr, administered: 12/05/2016 10:54:00 PM Toradol [IVP] IVP 30 mg, administered: 12/05/2016 11:00:00 PM Benadryl [IVP] IVP 25 mg, administered: 12/05/2016 11:36:00 PM The following Medications were prescribed to the patient: Take acetaminophen (Tylenol, Datril, etc.) according to label instructions. Available over the counter. -- Jerson Carmen Zofran ODT 8 mg: take 1 orally every 8 hours for 3 days as needed for nausea and vomiting. Dispense five (5). No refill. Substitution is permissible. -- Jerson Carmen
== END 2016-12-06 00:09 | disposition home or self-care (01) ==
LOC: ED SRH 19:57
DX: K52.9 Noninfective gastroenteritis and colitis, unspecified (principal); E86.0 Dehydration; E87.6 Hypokalemia; R51 Headache
CPT/HCPCS: 90004; 90100; 90154; 90159; 92760; 92761; 92762; 92763; 92764; 92765; 92766; 92767; 93070; 95059